=== PATIENT | female | born 1960 | race Caucasian/White ===

== ENCOUNTER 2017-12-08 07:13 | Emergency (ER) | payer BC ==
[~2017-12-08] VITALS: Ht 167.6 cm; Wt 76.8 kg
[2017-12-08 07:16] VITALS: BP 138/84
[2017-12-08 07:36] LABS: CLARITY,URINE BLOODY (Clear); COLOR,URINE RED (Yellow); UA COLLECTION TYPE CLN CATCH MIDSTREAM
[2017-12-08 07:50] LABS: RBC,URINE TNTC /HPF (0-2)
[2017-12-08 07:51] LABS: SQUAMOUS EPITHELIAL CELL,UR FEW /LPF (FEW); TRANSITIONAL EPI CELLS,URINE FEW /HPF; WBC,URINE TNTC /HPF (0-4)
[2017-12-08 07:52] LABS: MUCUS STRANDS FEW /LPF (Neg)
[2017-12-08 07:53] LABS: BACTERIA,URINE 2+ /HPF (Neg)
[2017-12-08] MEDS ORDERED: cephalexin 250mg capsule PO ONE (08:40)
[2017-12-08] MEDS ORDERED: phenazopyridine 100mg tablet PO ONE (08:40)
[2017-12-08] MEDS ORDERED: PHEN-716 PO (08:42)
[2017-12-08] MEDS ORDERED: CEPH-572 PO (08:42)
== END 2017-12-08 08:52 | disposition home or self-care (01) ==
LOC: ER 07:14
DX: N39.0 Urinary tract infection, site not specified (principal); Z88.1 Allergy status to other antibiotic agents; Z79.2 Long term (current) use of antibiotics; Z79.899 Other long term (current) drug therapy
CPT/HCPCS: 81001; 87088; 99284